=== PATIENT | female | born 1955 | race Two or more races ===

== ENCOUNTER → 2016-10-19 | Outpatient (CLI) | payer OTHER ==
--- NOTE | 2016-10-19 15:17 | RADRPT ---
PROCEDURE: Limited x-ray of both lower extremities. CLINICAL INDICATION: Bilateral leg pain. TECHNIQUE: Single frontal view of both lower extremities was obtained from the hips to the calves. COMPARISON: Right knee radiographs dated 08/26/2016. FINDINGS: The hips are grossly normal. There are degenerative changes of both knees with right worse than lef t. IMPRESSION: 1. Grossly normal hips. 2. Degenerative changes of both knees with right worse than left. RPTAT: QQ .Oscar Watters MD, MD Date Time Electronically viewed and signed by .Oscar Watters MD, MD on 10/19/2016 15:17 .R/
== END | disposition home or self-care (01) ==
LOC: HKI 09:31
PROVIDERS: ATTEND Orthopaedic Surgery
DX: Z01.818 Encounter for other preprocedural examination (principal); M17.11 Unilateral primary osteoarthritis, right knee; M25.561 Pain in right knee
CPT/HCPCS: 77073; Z7500; G0463

== ENCOUNTER 2016-10-25 10:43 | Inpatient (IN) | payer OTHER ==
[2016-10-24 11:59] VITALS: Ht 160 cm; Wt 75.0 kg
[2016-10-25] VITALS (58 sets, daily range): BP systolic 77–142; BP diastolic 40–81; PULSE 70–113; RESP 9–18
[~2016-10-25] VITALS: Ht 160 cm; Wt 75.0 kg
[~2016-10-25 10:43] MED LIST: PROPOFOL 1000 MG INJ ONE
[2016-10-25] MEDS: LACTATED RINGER'S 1,000 ML IV SCH ×3 (11:00→21:00)
[2016-10-25] MEDS ORDERED: TRANEXAMIC ACID 750 MG in SOD CHLORIDE 0.9% 92.5 ML IV ONE (11:00)
[2016-10-25] MEDS ORDERED: VANCOMYCIN 1 GM/NS 250 ML X1 BEFORE INCISION IVPB ONE (11:00)
[2016-10-25] MEDS ORDERED: traMADOL 50 MG TAB X 1 DOSE PO ONE (11:30)
[2016-10-25] MEDS ORDERED: PREGABALIN 300 MG PO X1 PO ONE (11:30)
[2016-10-25] MEDS ORDERED: CELECOXIB 400 MG PO X1 DOSE PO ONE (11:30)
[2016-10-25] MEDS ORDERED: oxyCODONE (CR) 10 MG TAB [oxyCONTIN] X1 DOSE PO ONE (11:30)
[2016-10-25] MEDS ORDERED: CLON0.5T4 PO (12:34)
[2016-10-25] MEDS ORDERED: MELO-109 PO (12:35)
[2016-10-25] MEDS ORDERED: FOLI-49 PO (12:35)
[2016-10-25] MEDS ORDERED: OMEP20CA16 PO (12:35)
[2016-10-25] MEDS ORDERED: SIMV20TA PO (12:36)
[2016-10-25] MEDS ORDERED: BACITRACIN 50000 UNITS INJ ONE (12:57)
[2016-10-25] MEDS ORDERED: BUPIVACAINE LIPOSOME/PF 266 MG/20 ML VIAL INFIL SCH (13:00)
[2016-10-25] MEDS ORDERED: TRANEXAMIC ACID 750 MG in SOD CHLORIDE 0.9% 100 ML IVPB SCH (13:00)
[2016-10-25] MEDS: PAIN COCKTAIL-CEFUROXIME IRR SCH ×14 (13:00→14:45)
[2016-10-25] MEDS ORDERED: EXPAREL NOTE (BUPIVICAINE LIPOSOMAL) XX SCH (13:00)
[2016-10-25] MEDS ORDERED: VANCOMYCIN 1 GM INJ ONE (13:02)
[2016-10-25] MEDS ORDERED: SODIUM CL BACTERIOSTATIC 30 ML INJ ONE (13:02)
[2016-10-25] MEDS ORDERED: POLYMYXIN B 500000 UNIT INJ ONE (13:02)
--- NOTE | 2016-10-25 13:10 | HPN ---
Date/Time of Note Date/Time of Note DATE: 10/25/16 TIME: 13:09 Interval H&P Admission Note Pt. seen H&P reviewed: No system changes No change from H&P on 10/14/[address] Julio Cloud. JAMIA BARBOSA MD Oct 25, 2016 13:10
[2016-10-25] MEDS ORDERED: METOCLOPRAMIDE 10 MG INJ ONE (13:19)
[2016-10-25] MEDS ORDERED: MIDAZOLAM 1 MG/ML 2 ML INJ ONE (13:19)
[2016-10-25] MEDS ORDERED: FENTAnyl 50 MCG/ML VIAL ONE (13:20)
[2016-10-25] MEDS ORDERED: DEXAMETHASONE 4 MG/ML 1 ML INJ ONE (13:34)
[2016-10-25] MEDS ORDERED: CEFAZOLIN 1 GM INJ ONE (13:34)
[2016-10-25] MEDS ORDERED: ONDANSETRON 4 MG INJ ONE (13:35)
[2016-10-25] MEDS ORDERED: ONDANSETRON 4 MG INJ IV PRN ×2 (14:30→16:30)
[2016-10-25] MEDS ORDERED: METOCLOPRAMIDE 10 MG INJ IV PRN (14:30)
[2016-10-25] MEDS ORDERED: DIPHENHYDRAMINE 50 MG INJ IV PRN (14:30)
[2016-10-25] MEDS ORDERED: HYDROmorphONE (0.2 MG/ML) 10ML SYG IV PRN ×3 (14:30)
[2016-10-25] MEDS ORDERED: MEPERIDINE 25 MG INJ IV PRN (14:30)
[2016-10-25] MEDS ORDERED: METOPROLOL 5 MG INJ ONE (14:45)
[2016-10-25] MEDS ORDERED: PROPOFOL 20 ML ONE (15:44)
[2016-10-25] MEDS ORDERED: hydrALAzine 20 MG INJ ONE (16:06)
[2016-10-25] MEDS ORDERED: MEPERIDINE 100 MG INJ ONE (16:07)
--- NOTE | 2016-10-25 16:22 | OPPN ---
Date/Time of Note Date/Time of Note DATE: 10/25/16 TIME: 16:21 Operative/Procedure Note Pre-Operative Diagnosis Right Knee OA Post-Operative Diagnosis Same Procedure Right TKA Surgeon: JAMIA BARBOSA MD Wedding Consultant: ROD MIRANDA PA-C Anesthesiologist: SOFIE PEREA MD Findings Severe OA Blood Usage/Administration None Implants/Grafts Depuy Attune TKA Estimated blood loss: 150 - 200 ml's Drains Hemovac x 2 Specimens Bone and soft tissue Complications: None Anesthesia type: spinal JAMIA BARBOSA MD Oct 25, 2016 16:22
[2016-10-25] MEDS ORDERED: MAGNESIUM HYDROXIDE 30ML CUP PO PRN (16:30)
[2016-10-25] MEDS ORDERED: BISACODYL 10 MG SUPP PR PRN (16:30)
[2016-10-25] MEDS ORDERED: NACL 0.9% 3 ML SYG IV SCH (16:30)
[2016-10-25] MEDS ORDERED: NA PHOSPHATE/BIPHOS 133 ML ENEMA PR PRN (16:30)
[2016-10-25] MEDS ORDERED: oxyCODONE 5 MG TAB PO PRN (16:30)
[2016-10-25] MEDS ORDERED: HYDROmorphONE 1 MG/ML SYG IV PRN (16:30)
[2016-10-25] MEDS ORDERED: ASPIRIN (EC) 325 MG TAB PO ONE (16:30)
[2016-10-25] MEDS ORDERED: DIPHENHYDRAMINE 25 MG CAP PO PRN (16:30)
--- NOTE | 2016-10-25 16:42 | PN ---
Date/Time of Note Date/Time of Note DATE: 10/25/16 TIME: 16:40 Assessment/Plan Lines/Catheters IV Catheter Type (from Nrsg): Peripheral IV Assessment/Plan Assessment/Plan Stable in PACU, s/p right TKA -cont abx x 48 hours -pain meds as needed -monitor prevena wound vac -ASA/SCDs for DVT prophylaxis -OOB with PT -check AM labs -monitor drain -d/c bonilla in AM XR of the right knee is pending at this time Subjective 24 Hr Interval Summary Doing well in PACU. Moving all extremities. Denies any pain. Exam/Review of Systems Vital Signs Vitals Vital Signs Date Time Temp Pulse Resp B/P Pulse Ox O2 Delivery O2 Flow Rate FiO2 10/25/16 12:22 98.3 70 18 142/74 98 Room Air Exam Free Text/Dictation Dressing dry Incision clean, dry, and intact without redness or drainage Thigh soft 5/5 Quadriceps, Tibialis Anterior, EHL, Gastroc, Soleus, Peroneals Normal sensation Palpable DT/PT, CR <2 sec No distal edema ROD MIRANDA PA-C Oct 25, 2016 16:41
[2016-10-25 16:43] LABS: HEMATOCRIT 32.2 % (37.0-47.0); HEMOGLOBIN 10.8 g/dl (12.0-16.0)
[2016-10-25 16:56] LABS: CREATININE 0.71 mg/dl (0.44-1.00); POTASSIUM 3.8 mmol/L (3.5-5.1)
[2016-10-25 16:57] LABS: CALCIUM 8.8 mg/dl (8.4-10.2)
--- NOTE | 2016-10-25 17:08 | CONS ---
Date/Time of Note Date/Time of Note DATE: 10/25/16 TIME: 16:56 Assessment/Plan Assessment/Plan Additional Assessment/Plan 61 yo s/p R TKA 2/2 Chronic severe OA managed for Dyslipidemia GERD Chronic anemia r/o iron deficiency PLAN: resume all previous home meds Labs to assess adequate home control of dyslipidemia Provide pain control/ antiemetics/ antipyretics/ supportive care PRN PROPHYLAXIS: DVT per ortho / PPI Thanks for the Consult. We will follow with you. Consultation Date/Type/Reason Admit Date/Time Oct 25, 2016 at 10:43 Date of Consultation: Oct 25, 2016 Type of Consultation: medicine Reason for Consultation med mgt Referring Provider: JAMIA BARBOSA MD Hx of Present Illness 61 yo F admitted for elective R TKA 2/2 chronic severe R kne OA. Currently post op uneventful surgery , lethargic with mild discomfort at op site. no other complaints 12 point review if systems was done and pertinent findings are as noted. Past Medical History * dyslipidemia * Chronic OA * chronic anemia Past Surgical History Past Surgical Hx: appendectomy, cholecystectomy Family History Significant Family History: no pertinent family hx Social History Alcohol Use: none Smoking Status: Never smoker Drug Use: none Exam/Review of Systems Vital Signs Vitals Vital Signs Date Time Temp Pulse Resp B/P Pulse Ox O2 Delivery O2 Flow Rate FiO2 10/25/16 12:22 98.3 70 18 142/74 98 Room Air Exam Constitutional: alert, oriented, No distress Head: atraumatic, normocephalic ENMT: No mucosa pink and moist (dry) Neck: non-tender, supple Respiratory: clear to auscultation, diminished breath sounds Cardiovascular: nl pulses, regular rate and rhythm Gastrointestinal: bowel sounds, non-tender, soft Extremities: No edema (LLE, RLE bandaged from upper thigh to ankle, patient moves toes well and good DP pulse in R foot) Neurological: lethargic, nl mental status, nl speech Results Result Diagram: 10/25/16 1630 Results 24 hrs Laboratory Tests Test 10/25/16 16:30 Hematocrit 32.2 L Hemoglobin 10.8 L Medications Medications Current Medications Lactated Ringer's (Lr) 1,000 ml @ 100 mls/hr Q10H IV ; Start 10/25/16 at 11:00 Bupivacaine Liposome (Exparel 266 Mg/ 20 ml Vial) 266 mg INTRA-OP INFIL Last administered on 10/25/16t 14:45; Admin Dose 266 MG; Start 10/25/16 at 13:00; Stop 10/29/16 at 12:59 Miscellaneous Information 1 ea NOTE XX ; Start 10/25/16 at 13:00; Stop 10/29/16 at 12:59 Clonazepam 0.5 mg 0.5 mg QHS PO ; Start 10/25/16 at 21:00 Lactated Ringer's (Lr) 1,000 ml @ 125 mls/hr Q8H IV ; Start 10/25/16 at 16:14 Celecoxib 200 mg 200 mg DAILY PO ; Start 10/26/16 at 09:00 Acetaminophen (Ofirmev 1000mg/ 100ml Iv) 100 ml @ 400 mls/hr Q6 IVPB ; Start at 18:00; Stop 10/26/16 at 17:59 Tramadol HCl (Ultram) 50 mg Q6 PO ; Start 10/25/16 at 12:00; Stop 10/28/16 at 11 :59 Oxycodone HCl (Roxicodone) 5 mg Q4H PRN PO PAIN LEVEL 1-3; Start 10/25/16 at 16 :30 Oxycodone HCl (Roxicodone) 10 mg Q4H PRN PO PAIN LEVEL 4-7; Start 10/25/16 at 16:30 Hydromorphone HCl 1 mg 1 mg Q3H PRN IV PAIN LEVEL 8-10; Start 10/25/16 at 16:30 Vancomycin HCl (Vancocin) 250 ml @ 125 mls/hr Q12 IVPB ; Start 10/25/16 at 21: 00; Stop 10/27/16 at 10:59 Ondansetron HCl (Zofran Inj) 4 mg Q6H PRN IV NAUSEA AND/OR VOMITING; Start at 16:30 Bisacodyl (Dulcolax Supp) 10 mg Q12H PRN [place] CONSTIPATION; Start 10/25/16 at 16: 30 Magnesium Hydroxide (Milk Of Mag) 30 ml BID PRN PO CONSTIPATION; Start at 16:30 Sodium Biphosphate/ Sodium Phosphate (Fleet Enema) 133 ml DAILY PRN SC CONSTIPATION; Start 10/25/16 at 16:30 Docusate Sodium (Colace) 100 mg BID PO ; Start 10/25/16 at 21:00 Diphenhydramine HCl (Benadryl) 25 mg Q6H PRN PO PRURITUS; Start 10/25/16 at 16: 30 Aspirin (Ecotrin) 325 mg BID PO ; Start 10/26/16 at 09:00 Pantoprazole (Protonix Tab) 40 mg BID@06,18 PO ; Start 10/25/16 at 18:00 Pregabalin (Lyrica) 50 mg BID PO ; Start 10/25/16 at 21:00 JOE HAMILTON Oct 25, 2016 17:07
--- NOTE | 2016-10-25 17:17 | RADRPT ---
PROCEDURE: XR Knee. CLINICAL INDICATION: Postop TECHNIQUE: AP and lateral views of the right knee are available for review. COMPARISON: None available FINDINGS: A cemented right total knee arthroplasty is present in near anatomic alignment without acute radiogr aphic abnormality. Recent surgical changes seen in the soft tissues. IMPRESSION: 1. Total right knee arthroplasty in near anatomic alignment without acute radiographic abnormality RPTAT: [facility] .Tyrone Price MD, MD Date Time Electronically viewed and signed by .Tyrone Price MD, MD on 10/25/2016 17:17 .d/
[2016-10-25] MEDS: traMADol 50 MG TAB PO SCH ×4 (18:00→23:48)
[2016-10-25] MEDS: ACETAMINOPHEN 1000MG/100ML IV 100 ML IVPB SCH ×2 (18:33→23:45)
[2016-10-25] MEDS: PANTOPRAZOLE (EC) 40 MG TAB PO SCH (18:36)
[2016-10-25] MEDS ORDERED: EPHEDrine SULFATE 50 MG/5 ML SYG ONE (19:27)
[2016-10-25] MEDS ORDERED: ALBUMIN HUMAN 5% 250 ML IV SCH (19:30)
[2016-10-25] MEDS ORDERED: LACTATED RINGER'S 500 ML IV SCH (19:30)
[2016-10-25] MEDS ORDERED: TRANEXAMIC ACID 750 MG in SOD CHLORIDE 0.9% 100 ML IVPB ONE ×2 (19:30→22:30)
[2016-10-25] MEDS ORDERED: EPHEDrine SULFATE 50 MG/5 ML SYG IV PRN ×2 (20:00)
[2016-10-25] MEDS ORDERED: ALBUMIN HUMAN 5% 250 ML IV ONE (20:00)
[2016-10-25] MEDS: PREGABALIN 25 MG CAP PO SCH (21:52)
[2016-10-25] MEDS: clonAZEPAM 0.5 MG TAB PO SCH (21:52)
[2016-10-25] MEDS: DOCUSATE SODIUM 100 MG CAP PO SCH (21:52)
[2016-10-25] MEDS: VANCOMYCIN 1 GM (PMX) 250 ML IVPB SCH (21:52)
--- NOTE | 2016-10-26 00:01 | OPR ---
DATE OF OPERATION: 10/25/2016 DATE: 10/25/2016 PREOPERATIVE DIAGNOSIS: Right knee osteoarthritis. POSTOPERATIVE DIAGNOSIS: Right knee osteoarthritis. OPERATION PERFORMED: Right total knee arthroplasty. SURGEON: Jamia Barragan MD SENIOR JAVA DATA ARCHITECT: YNES Acuña COMPONENTS USED: DePuy Attune size 5 narrow femoral component, size 4 tibial baseplate, 7 mm polyethylene insert and a 35 patellar button. ANESTHESIA: Spinal plus general endotracheal intubation plus periarticular injection. ANESTHESIOLOGIST: SOFIE PEREA MD. TOURNIQUET TIME: 63 minutes. ESTIMATED BLOOD LOSS: 150 mL. INTRAVENOUS FLUIDS: 1400 mL crystalloid. SPECIMENS: Bone and soft tissue. DRAINS: Hemovac x2. COMPLICATIONS: None. DISPOSITION: The patient tolerated the procedure well and was taken to the recovery room in stable condition. INDICATIONS: The patient is a 61-year-old woman who has had progressive worsening pain in the right knee with radiographic evidence of severe osteoarthritis. She has failed nonsurgical means of treatment to control her pain including activity modifications, pain medications, intra-articular injections and ambulatory assist devices. Despite these measures, she has had worsening pain. I felt she would benefit from a total knee arthroplasty. The risks, benefits, and alternatives of the procedure were explained in detail to the patient. I explained the risks of the surgery to include but not be limited to, bleeding and possible need for blood transfusion; infection; pain; stiffness; neurovascular injury with possible numbness, weakness, and/or paralysis anywhere from the knee down to the toes; fracture; instability; dislocation; wear and/or loosening of the prosthesis and possible need for future revision; blood clots; pulmonary embolism; and anesthetic complications such as heart attack, stroke, GI bleed, pneumonia, and/or . Ample time was allowed for the patient to ask questions, all of which were addressed and answered. The patient understood the risks involved and wished to proceed. Informed consent was signed prior to the procedure. PROCEDURE: The patient's right knee was initialed with a marking pen in the preoperative area to identify the correct operative site. The patient was brought to the operating room and transferred from the [facility] to the operating table where a spinal anesthetic was administered. The patient was then anesthetized and intubated. A Langford catheter was placed. A timeout was performed to confirm that the right leg was the correct operative site. The patient was given 2 g of Ancef within one hour prior to the procedure. A tourniquet was placed on the operative proximal thigh. The operative knee and lower extremity were prepped and draped in the usual sterile fashion. The operative lower extremity was elevated and exsanguinated with an Esmarch tourniquet. The proximal thigh tourniquet was inflated to 300 mmHg. The knee was flexed. A midline incision was made and carried down through the subcutaneous tissue and fat with sharp dissection. Limited medial and lateral flaps were raised. A median parapatellar arthrotomy was performed. Synovial fluid was normal in color and consistency. The patella was everted and the knee flexed. There were severe tricompartmental osteoarthritic changes noted. A medial release was performed at the joint line to the midcoronal plane. The ACL and PCL and remnants of the menisci were excised. The stepped drill was used to open up the femoral canal which was irrigated and sucked dry. The intramedullary guide lakesha was passed up the femur, and the distal cutting block was pinned into place for a 6 degree valgus cut, taking 10 mm of bone off distally. The oscillating saw was used to make the cut. The tibia was subluxed anteriorly. The tibial cutoff jig was placed over the center of the talus distally and over the junction of the medial and middle third of the tibial tubercle proximally. The guide was pinned into place and the oscillating saw was used to make the cut. The tibia was sized. The extension gap was checked and accommodated a 7 mm spacer block with the knee in full extension. There was no varus or valgus instability. At this point, the femur was sized with the posterior referencing guide. Two holes were drilled in 3 degrees of external rotation. The two holes were in line with the transepicondylar axis, perpendicular to Fate's line, and in line with the tibial cutoff jig brought up with the knee flexed 90 degrees and tensed with 2 lamina spreaders, suggesting the femoral rotation was correct. The four-in-one cutting block was pinned into place. The anterior and posterior cuts and chamfer cuts were made with the oscillating saw. The flexion gap was checked and accommodated the 7 mm spacer block at 90 degrees. There was no varus or valgus instability, suggesting the flexion and extension gaps were now equal. The central box was cut out on the femur. The tibia was drilled and punched in proper rotation. Trial components were placed into position with a trial insert. The patella was cut down to 21 mm down to 13 mm and sized. Three holes were drilled and the trial button placed in position. With all the trials now in place, the knee was taken through range of motion and came to full extension as evidenced by the fact that with the foot on my abdomen and axial loading, there was no tendency for the knee to flex. The knee was able to be flexed to 125 degrees with good patellar tracking with no lateral tilt or subluxation. At this point, I was satisfied with the overall range of motion, stability, and patellar tracking. The trials were removed. The real components were opened. Two bags of cement were mixed, one with and one without premixed antibiotic. The knee was irrigated with antibiotic saline and sucked dry. Once the cement was in a doughy stage, the real components were cemented into place. The knee was held in full extension, and the patellar component was held with a patellar clamp. All excess cement was removed with curettes. As the cement was hardening, the synovial/capsular layer was infiltrated with a mixture of 150 mg of 0.5% Bupivacaine, 8 mg of Duramorph, 300 mcg of epinephrine, 30 mg of Toradol, 100 mcg of clonidine, 750 mg of cefuroxime and 86 mL of normal saline, followed by an injection of 266 mg of liposomal Bupivacaine. A Hemovac drain was placed in the deep portion of the wound and brought out the anterolateral thigh. Once the cement was completely hardened, the trial liner was removed, and the real insert was opened. The tourniquet was let down, and there was good hemostasis. The knee was then irrigated with a mixture of betadine/saline and then antibiotic saline with pulsatile lavage. The real insert was impacted into the tibia and reduced onto to the femur. The arthrotomy was closed with a few interrupted #1 Ethibond in a figure-of- eight fashion, and then closed in a watertight fashion with a running #2 Stratafix suture. Knee flexion was checked against gravity and came to 125 degrees. The subcutaneous layer was irrigated and closed with 2-0 Statafix, and then 3-0 Vicryl and allie on the skin. The wound was covered with an occlusive dressing, and secured with cast padding and a bias dressing. The drain was secured with 3-0 nylon. The sponge and needle counts were correct at the end of the case. The patient was then awakened, extubated, and taken to the recovery room in stable condition. Dictated By: JAMIA CRUZ/ALEC Conf#: [id number] DID#: [id number] MTDAdrienne
[2016-10-26 00:14] VITALS: BP 96/54; RESP 18
[2016-10-26] MEDS: LACTATED RINGER'S 1,000 ML IV SCH ×5 (00:14→18:09)
[2016-10-26 01:00] VITALS: BP 98/55; PULSE 93; RESP 16
[2016-10-26 04:15] VITALS: BP 98/53; PULSE 87; RESP 16
[2016-10-26 05:35] LABS: HEMATOCRIT 25.6 % (37.0-47.0); HEMOGLOBIN 8.7 g/dl (12.0-16.0)
[2016-10-26 05:37] LABS: CHOL/HDL RATIO 1.7 RATIO; MAGNESIUM 1.5 mg/dl (1.7-2.5)
[2016-10-26] MEDS: PANTOPRAZOLE (EC) 40 MG TAB PO SCH ×2 (05:44→18:09)
[2016-10-26] MEDS: ACETAMINOPHEN 1000MG/100ML IV 100 ML IVPB SCH ×2 (05:44→11:48)
[2016-10-26 05:45] LABS: IRON 17 ug/dl (35-150)
[2016-10-26] MEDS: traMADol 50 MG TAB PO SCH ×4 (05:45→23:32)
[2016-10-26 05:50] LABS: CREATININE 0.76 mg/dl (0.44-1.00)
[2016-10-26 05:51] LABS: CALCIUM 8.4 mg/dl (8.4-10.2)
[2016-10-26 05:54] LABS: TOTAL IRON BINDING CAPACITY 167 ug/dl (241-421)
[2016-10-26 08:05] VITALS: BP 110/59; RESP 89
--- NOTE | 2016-10-26 08:46 | PN ---
Date/Time of Note Date/Time of Note DATE: 10/26/16 TIME: 08:45 Assessment/Plan Lines/Catheters IV Catheter Type (from Nrsg): Peripheral IV Langford in Place (from Nrsg): Yes Assessment/Plan Assessment/Plan Stable with low H&H POD #1, s/p right TKA -continue abx x 24 hours additional -ASA/SCDs -pain meds as needed -monitor drain -H&H low. Will monitor for now -OOB with PT -check AM labs -d/c planning. Will likely go home upon discharge Subjective 24 Hr Interval Summary Doing well. No acute overnight events. Denies pain. H&H low but patient asymptomatic. Denies f/c. Exam/Review of Systems Vital Signs Vitals Vital Signs Date Time Temp Pulse Resp B/P Pulse Ox O2 Delivery O2 Flow Rate FiO2 10/26/16 08:05 98.7 89 89 110/59 99 10/26/16 04:15 Nasal Cannula 2.0 Intake and Output 10/25/16 10/25/16 10/26/16 15:00 23:00 07:00 Intake Total 100 ml 3650 ml 650 ml Output Total 650 ml 540 ml Balance 100 ml 3000 ml 110 ml Exam Free Text/Dictation Hemovac: 40cc Dressing dry Incision clean, dry, and intact without redness or drainage Thigh soft 5/5 Quadriceps, Tibialis Anterior, EHL, Gastroc, Soleus, Peroneals Normal sensation Palpable DT/PT, CR <2 sec No distal edema Results Result Diagram: 10/26/165 10/26/16 0435 ROD MIRANDA PA-C Oct 26, 2016 08:46
[2016-10-26 09:19] LABS: ADD UMIC YES; URINE BILIRUBIN (Dip) NEGATIVE (NEGATIVE); URINE BLOOD (Dip) TRACE (NEGATIVE); URINE COLOR LT. YELLOW (YELLOW); URINE GLUCOSE (Dip) NEGATIVE (NEGATIVE); URINE KETONES (Dip) 40 (NEGATIVE); URINE LEUKOCYTE ESTERASE (Dip) NEGATIVE (NEGATIVE); URINE NITRITE (Dip) NEGATIVE (NEGATIVE); URINE TOTAL PROTEIN (Dip) NEGATIVE (NEGATIVE); URINE UROBILINOGEN (Dip) 0.2 E.U./dL (0.1-1.0)
[2016-10-26] MEDS: CELECOXIB 200 MG CAP PO SCH (09:29)
[2016-10-26] MEDS: ASPIRIN (EC) 325 MG TAB PO SCH ×2 (09:29→20:37)
[2016-10-26] MEDS: PREGABALIN 25 MG CAP PO SCH ×2 (09:29→20:37)
[2016-10-26] MEDS: DOCUSATE SODIUM 100 MG CAP PO SCH ×2 (09:29→20:37)
[2016-10-26] MEDS: VANCOMYCIN 1 GM (PMX) 250 ML IVPB SCH ×2 (09:29→20:37)
[2016-10-26 09:58] LABS: BACTERIA,URINE FEW; URINE RBCS 0-2 /HPF (0)
[2016-10-26] MEDS: oxyCODONE 5 MG TAB PO PRN (10:52)
--- NOTE | 2016-10-26 10:53 | PN ---
DATE: 10/26/2016 SUBJECTIVE DATA: Right knee pain well controlled. OBJECTIVE DATA: VITAL SIGNS: Temperature 98.7, pulse rate 89, respiratory rate 16, blood pressure 110/59, oxygen saturation 99% on low flow O2. GENERAL: This is a well-built, well-nourished female lying in bed in no apparent distress. HEENT: Head normocephalic and atraumatic. Eyes: Anicteric sclerae. Conjunctivae clear. ENT: Nasal septum is midline. Oral mucosa is moist. NECK: Supple. No JVD noticed. RESPIRATORY: Bilaterally clear to auscultation. No adventitious breath sounds heard. No use of accessory muscles of respiration. CARDIAC: Regular rate and rhythm. No murmurs. ABDOMEN: Soft, nontender and nondistended. Bowel sounds positive in all 4 quadrants. GENITOURINARY: The patient has a Langford catheter in place. EXTREMITIES: Right knee surgical dressing clean, dry and intact. Peripheral pulses palpable. No edema. NEUROLOGIC: The patient is awake, alert and oriented. Cranial nerves are grossly intact. LABORATORY AND DIAGNOSTIC DATA: Hemoglobin 8.7, hematocrit 25.6. Sodium 140, potassium 4.0, chloride 105, carbon dioxide 25, anion gap 15, BUN 15, creatinine 0.76, glucose 98, calcium 8.4. Magnesium 1.5. Iron 17, TIBC 167, iron saturation 30. Triglycerides 38, total cholesterol 122, LDL 43, HDL 71. ASSESSMENT AND PLAN: 1. Right knee osteoarthritis. Status post right total knee arthroplasty on . Postoperative management as per orthopedic surgery. Continue pain control. Continue physical therapy. 2. Anemia. The patient has underlying iron deficiency. We will start the patient on iron supplements. Transfusion will be deferred to orthopedic surgery. 3. Hypomagnesemia. We will replete. 4. Dyslipidemia. The patient's fasting lipid panel optimal. The patient on statins at home. 5. History of leukocytopenia. We will monitor. 6. Fluid, electrolytes and nutrition. Continue regular diet as tolerated. 7. Deep venous thrombosis prophylaxis, on aspirin as per orthopedic surgery. 8. Gastrointestinal prophylaxis, proton pump inhibitors. PLAN: Continue postoperative care. Add iron supplements. Replete magnesium. We will continue to follow the patient along with you. Thank you for the consult. Case discussed with Dr. Conner. ABUNDIO CONNER MD AM/ALEC Conf#: [id number] DID#: [id number] MTDD
[2016-10-26] MEDS ORDERED: MAGNESIUM SULFATE 2 GM/50 ML 50 ML IVPB ONE (11:30)
[2016-10-26 19:00] VITALS: BP 115/61; RESP 19
[2016-10-26] MEDS: FERROUS SULFATE (EC) 325 MG TAB PO SCH (20:37)
[2016-10-26] MEDS: clonAZEPAM 0.5 MG TAB PO SCH (22:06)
[2016-10-27] MEDS: LACTATED RINGER'S 1,000 ML IV SCH ×6 (00:14→23:00)
[2016-10-27] MEDS: PANTOPRAZOLE (EC) 40 MG TAB PO SCH ×2 (05:28→18:40)
[2016-10-27] MEDS: traMADol 50 MG TAB PO SCH ×4 (05:28→23:40)
[2016-10-27 05:35] LABS: BASOPHILS % 0.2 % (0.0-2.0); EOSINOPHILS # 0.1 10^3/ul (0.0-0.5); EOSINOPHILS % 1.6 % (0.0-7.0); HEMATOCRIT 28.4 % (37.0-47.0); HEMOGLOBIN 9.4 g/dl (12.0-16.0); LYMPHOCYTES # 0.5 10^3/ul (0.8-2.9); LYMPHOCYTES % 9.9 % (15.0-51.0); MEAN CORPUSCULAR HGB CONC 33.2 g/dl (32.0-37.0); MEAN CORPUSCULAR VOLUME 99.4 fl (82.0-101.0); MEAN PLATELET VOLUME 8.7 fl (7.4-10.4); MONOCYTE # 0.3 10^3/ul (0.3-0.9); MONOCYTES % 5.7 % (0.0-11.0); NEUTROPHIL # 3.8 10^3/ul (1.6-7.5); NEUTROPHILS % 82.6 % (39.0-77.0); PLATELET COUNT 128 10^3/UL (140-440); RED BLOOD COUNT 2.86 10^6/ul (4.20-5.40); RED CELL DISTRIBUTION WIDTH 13.3 % (11.5-14.5); UNCORRECTED WBC 4.6 10^3/ul (4.8-10.8); WHITE BLOOD COUNT 4.6 10^3/ul (4.8-10.8)
[2016-10-27 05:41] LABS: CONDITION 1
[2016-10-27 05:49] LABS: POTASSIUM 3.6 mmol/L (3.5-5.1)
[2016-10-27 05:52] LABS: CREATININE 0.79 mg/dl (0.44-1.00)
[2016-10-27 05:53] LABS: CALCIUM 8.3 mg/dl (8.4-10.2)
[2016-10-27] MEDS: oxyCODONE 5 MG TAB PO PRN (08:03)
[2016-10-27 08:29] VITALS: BP 134/69; RESP 18
--- NOTE | 2016-10-27 09:26 | PN ---
Date/Time of Note Date/Time of Note DATE: 10/26/16 TIME:07:23 A 61 year female s/p knee artyhroplasty with Spinal and TIVA. POD #1. pt is stable. pain is controlled, no N/V or headache or itching. Back is clean Assessment/Plan VTE Prophylaxis VTE Prophylaxis Intervention: SCD's Lines/Catheters IV Catheter Type (from Nrsg): Peripheral IV Urinary Cath still in place: No Exam/Review of Systems Vital Signs Vitals Vital Signs Date Time Temp Pulse Resp B/P Pulse Ox O2 Delivery O2 Flow Rate FiO2 10/27/16 08:29 98.0 79 18 134/69 92 10/26/16 04:15 Nasal Cannula 2.0 Intake and Output 10/26/16 10/26/16 10/27/16 14:59 22:59 06:59 Intake Total 100 ml 2760 ml 950 ml Output Total 510 ml 840 ml Balance 100 ml 2250 ml 110 ml Results Result Diagram: 10/27/16 0430 10/27/16 0430 Results 24 hrs Laboratory Tests Test 10/27/16 04:30 Anion Gap 13 Basophils # 0.0 Basophils % 0.2 Blood Urea Nitrogen 12 Calcium Level 8.3 L Carbon Dioxide Level 29 Chloride Level 101 Creatinine 0.79 Eosinophils # 0.1 Eosinophils % 1.6 Glucose Level 88 Hematocrit 28.4 L Hemoglobin 9.4 L Lymphocytes # 0.5 L Lymphocytes % 9.9 L Magnesium Level 1.9 Mean Corpuscular Hemoglobin 33.0 Mean Corpuscular Hemoglobin Concent 33.2 Mean Corpuscular Volume 99.4 Mean Platelet Volume 8.7 Monocytes # 0.3 Monocytes % 5.7 Neutrophils # 3.8 Neutrophils % 82.6 H Nucleated Red Blood Cells # 0.0 Nucleated Red Blood Cells % 0.0 Platelet Count 128 L Potassium Level 3.6 Red Blood Count 2.86 L Red Cell Distribution Width 13.3 Sodium Level 139 White Blood Count 4.6 L Medications Medications Current Medications Lactated Ringer's (Lr) 1,000 ml @ 100 mls/hr Q10H IV Last administered on 10/27 05:28; Admin Dose 100 MLS/HR; Start 10/25/16 at 11:00 Bupivacaine Liposome (Exparel 266 Mg/ 20 ml Vial) 266 mg INTRA-OP INFIL Last administered on 10/25/16 14:45; Admin Dose 266 MG; Start 10/25/16 at 13:00; Stop 10/29/16 at 12:59 Miscellaneous Information 1 ea NOTE XX ; Start 10/25/16 at 13:00; Stop 10/29/16 at 12:59 Clonazepam 0.5 mg 0.5 mg QHS PO Last administered on 10/26/16 22:06; Admin Dose 0.5 MG; Start 10/25/16 at 21:00 Lactated Ringer's (Lr) 1,000 ml @ 125 mls/hr Q8H IV Last administered on 16:02; Admin Dose 125 MLS/HR; Start 10/25/16 at 16:14 Celecoxib (Celebrex) 200 mg DAILY PO Last administered on 10/26/16 09:29; Admin Dose 200 MG; Start 10/26/16 at 09:00 Tramadol HCl (Ultram) 50 mg Q6 PO Last administered on 10/27/16 05:28; Admin Dose 50 MG; Start 10/25/16 at 12:00; Stop 10/28/16 at 11:59 Oxycodone HCl (Roxicodone) 5 mg Q4H PRN PO PAIN LEVEL 1-3; Start 10/25/16 at 16 :30 Oxycodone HCl (Roxicodone) 10 mg Q4H PRN PO PAIN LEVEL 4-7 Last administered on 10/27/16 08:03; Admin Dose 10 MG; Start 10/25/16 at 16:30 Hydromorphone HCl 1 mg 1 mg Q3H PRN IV PAIN LEVEL 8-10; Start 10/25/16 at 16:30 Vancomycin HCl (Vancocin) 250 ml @ 125 mls/hr Q12 IVPB Last administered on 20:37; Admin Dose 125 MLS/HR; Start 10/25/16 at 21:00; Stop 10/27/16 at 10:59 Ondansetron HCl (Zofran Inj) 4 mg Q6H PRN IV NAUSEA AND/OR VOMITING; Start at 16:30 Bisacodyl (Dulcolax Supp) 10 mg Q12H PRN [place] CONSTIPATION; Start 10/25/16 at 16: 30 Magnesium Hydroxide (Milk Of Mag) 30 ml BID PRN PO CONSTIPATION; Start at 16:30 Sodium Biphosphate/ Sodium Phosphate (Fleet Enema) 133 ml DAILY PRN [place] CONSTIPATION; Start 10/25/16 at 16:30 Docusate Sodium (Colace) 100 mg BID PO Last administered on 10/26/16 20:37; Admin Dose 100 MG; Start 10/25/16 at 21:00 Diphenhydramine HCl (Benadryl) 25 mg Q6H PRN PO PRURITUS; Start 10/25/16 at 16: 30 Aspirin (Ecotrin) 325 mg BID PO Last administered on 10/26/16 20:37; Admin Dose 325 MG; Start 10/26/16 at 09:00 Pantoprazole (Protonix Tab) 40 mg BID@06,18 PO Last administered on 10/27/16 05:28; Admin Dose 40 MG; Start 10/25/16 at 18:00 Pregabalin (Lyrica) 50 mg BID PO Last administered on 10/26/16 20:37; Admin Dose 50 MG; Start 10/25/16 at 21:00 Ferrous Sulfate (Ferrous Sulfate (Ec)) 325 mg BID PO Last administered on 20:37; Admin Dose 325 MG; Start 10/26/16 at 21:00 SOFIE PEREA MD Oct 27, 2016 09:26
--- NOTE | 2016-10-27 09:47 | PN ---
Date/Time of Note Date/Time of Note DATE: 10/27/16 TIME: 09:39 Assessment/Plan VTE Prophylaxis VTE Prophylaxis Intervention: other (Aspirin) Lines/Catheters IV [facility] (from [facility]): Peripheral IV Urinary Cath still in place: No Assessment/Plan Chief Complaint/Hosp Course 1. Right knee osteoarthritis. Status post right total knee arthroplasty on . Postoperative management as per orthopedic surgery. Continue pain control. Continue physical therapy. 2. Normocytic, normochromic anemia. The patient has underlying iron deficiency. Continue iron supplements. Transfusion will be deferred to orthopedic surgery. 3. Pancytopenia. As per the patient, she was evaluated by hematology including a bone marrow biopsy. The patient did not have any evidence of any malignancy. Continue to monitor. 4. Dyslipidemia. The patient's fasting lipid panel optimal. The patient on statins at home. 5. Fluid, electrolytes and nutrition. Continue regular diet as tolerated. 6. Deep venous thrombosis prophylaxis, on aspirin as per orthopedic surgery. 7. Gastrointestinal prophylaxis. Continue proton pump inhibitors. PLAN: Continue postoperative care. Continue iron supplements. Will continue to follow the patient along with you. Thank you for the consult. Case discussed with Dr. Conner. Problems: Subjective 24 Hr Interval Summary Free Text/Dictation Patient progressing well with PT. Pain well controlled. Exam/Review of Systems Vital Signs Vitals Vital Signs Date Time Temp Pulse Resp B/P Pulse Ox O2 Delivery O2 Flow Rate FiO2 10/27/16 08:29 98.0 79 18 134/69 92 10/26/16 04:15 Nasal Cannula 2.0 Intake and Output 10/26/16 10/26/16 10/27/16 15:00 23:00 07:00 Intake Total 100 ml 2760 ml 950 ml Output Total 510 ml 840 ml Balance 100 ml 2250 ml 110 ml Exam GENERAL: This is a well-built, well-nourished female lying in bed in no apparent distress. HEENT: Head normocephalic and atraumatic. Eyes: Anicteric sclerae. Conjunctivae clear. ENT: Nasal septum is midline. Oral mucosa is moist. NECK: Supple. No JVD noticed. RESPIRATORY: Bilaterally clear to auscultation. No adventitious breath sounds heard. No use of accessory muscles of respiration. CARDIAC: Regular rate and rhythm. No murmurs. ABDOMEN: Soft, nontender and nondistended. Bowel sounds positive in all 4 quadrants. GENITOURINARY: The patient has a Langford catheter in place. EXTREMITIES: Right knee surgical dressing clean, dry and intact. Peripheral pulses palpable. No edema. NEUROLOGIC: The patient is awake, alert and oriented. Cranial nerves are grossly intact. Results Result Diagram: 10/27/16 0430 10/27/16 0430 Results 24 hrs Laboratory Tests Test 10/27/16 04:30 Anion Gap 13 Basophils # 0.0 Basophils % 0.2 Blood Urea Nitrogen 12 Calcium Level 8.3 L Carbon Dioxide Level 29 Chloride Level 101 Creatinine 0.79 Eosinophils # 0.1 Eosinophils % 1.6 Glucose Level 88 Hematocrit 28.4 L Hemoglobin 9.4 L Lymphocytes # 0.5 L Lymphocytes % 9.9 L Magnesium Level 1.9 Mean Corpuscular Hemoglobin 33.0 Mean Corpuscular Hemoglobin Concent 33.2 Mean Corpuscular Volume 99.4 Mean Platelet Volume 8.7 Monocytes # 0.3 Monocytes % 5.7 Neutrophils # 3.8 Neutrophils % 82.6 H Nucleated Red Blood Cells # 0.0 Nucleated Red Blood Cells % 0.0 Platelet Count 128 L Potassium Level 3.6 Red Blood Count 2.86 L Red Cell Distribution Width 13.3 Sodium Level 139 White Blood Count 4.6 L Medications Medications Current Medications Lactated Ringer's (Lr) 1,000 ml @ 100 mls/hr Q10H IV Last administered on 10/27 05:28; Admin Dose 100 MLS/HR; Start 10/25/16 at 11:00 Bupivacaine Liposome (Exparel 266 Mg/ 20 ml Vial) 266 mg INTRA-OP INFIL Last administered on 10/25/16 14:45; Admin Dose 266 MG; Start 10/25/16 at 13:00; Stop 10/29/16 at 12:59 Miscellaneous Information 1 ea NOTE XX ; Start 10/25/16 at 13:00; Stop 10/29/16 at 12:59 Clonazepam 0.5 mg 0.5 mg QHS PO Last administered on 10/26/16 22:06; Admin Dose 0.5 MG; Start 10/25/16 at 21:00 Lactated Ringer's (Lr) 1,000 ml @ 125 mls/hr Q8H IV Last administered on 16:02; Admin Dose 125 MLS/HR; Start 10/25/16 at 16:14 Celecoxib (Celebrex) 200 mg DAILY PO Last administered on 10/26/16 09:29; Admin Dose 200 MG; Start 10/26/16 at 09:00 Tramadol HCl (Ultram) 50 mg Q6 PO Last administered on 10/27/16 05:28; Admin Dose 50 MG; Start 10/25/16 at 12:00; Stop 10/28/16 at 11:59 Oxycodone HCl (Roxicodone) 5 mg Q4H PRN PO PAIN LEVEL 1-3; Start 10/25/16 at 16 :30 Oxycodone HCl (Roxicodone) 10 mg Q4H PRN PO PAIN LEVEL 4-7 Last administered on 10/27/16 08:03; Admin Dose 10 MG; Start 10/25/16 at 16:30 Hydromorphone HCl 1 mg 1 mg Q3H PRN IV PAIN LEVEL 8-10; Start 10/25/16 at 16:30 Vancomycin HCl (Vancocin) 250 ml @ 125 mls/hr Q12 IVPB Last administered on 20:37; Admin Dose 125 MLS/HR; Start 10/25/16 at 21:00; Stop 10/27/16 at 10:59 Ondansetron HCl (Zofran Inj) 4 mg Q6H PRN IV NAUSEA AND/OR VOMITING; Start at 16:30 Bisacodyl (Dulcolax Supp) 10 mg Q12H PRN [place] CONSTIPATION; Start 10/25/16 at 16: 30 Magnesium Hydroxide (Milk Of Mag) 30 ml BID PRN PO CONSTIPATION; Start at 16:30 Sodium Biphosphate/ Sodium Phosphate (Fleet Enema) 133 ml DAILY PRN [place] CONSTIPATION; Start 10/25/16 at 16:30 Docusate Sodium (Colace) 100 mg BID PO Last administered on 10/26/16 20:37; Admin Dose 100 MG; Start 10/25/16 at 21:00 Diphenhydramine HCl (Benadryl) 25 mg Q6H PRN PO PRURITUS; Start 10/25/16 at 16: 30 Aspirin (Ecotrin) 325 mg BID PO Last administered on 10/26/16 20:37; Admin Dose 325 MG; Start 10/26/16 at 09:00 Pantoprazole (Protonix Tab) 40 mg BID@06,18 PO Last administered on 10/27/16 05:28; Admin Dose 40 MG; Start 10/25/16 at 18:00 Pregabalin (Lyrica) 50 mg BID PO Last administered on 10/26/16 20:37; Admin Dose 50 MG; Start 10/25/16 at 21:00 Ferrous Sulfate (Ferrous Sulfate (Ec)) 325 mg BID PO Last administered on 20:37; Admin Dose 325 MG; Start 10/26/16 at 21:00 ABUNDIO REED NP Oct 27, 2016 09:47
[2016-10-27] MEDS: CELECOXIB 200 MG CAP PO SCH (09:48)
[2016-10-27] MEDS: ASPIRIN (EC) 325 MG TAB PO SCH ×2 (09:48→20:57)
[2016-10-27] MEDS: DOCUSATE SODIUM 100 MG CAP PO SCH ×2 (09:48→20:57)
[2016-10-27] MEDS: PREGABALIN 25 MG CAP PO SCH ×2 (09:48→20:57)
[2016-10-27] MEDS: VANCOMYCIN 1 GM (PMX) 250 ML IVPB SCH (09:49)
[2016-10-27] MEDS: FERROUS SULFATE (EC) 325 MG TAB PO SCH ×2 (09:49→20:56)
--- NOTE | 2016-10-27 11:04 | PN ---
Date/Time of Note Date/Time of Note DATE: 10/27/16 TIME: 11:02 Assessment/Plan Lines/Catheters IV Catheter Type (from Nrsg): Peripheral IV Langford in Place (from Nrsg): No Assessment/Plan Assessment/Plan Stable POD #2, s/p right TKA -pain meds, switch from oxycodone to norco -ASA/SCDs -OOB with PT -drain removed -check AM labs -d/c planning. Will likely go home tomorrow Subjective 24 Hr Interval Summary Doing well. No acute overnight events. H&H stable now. Mild pain with bending the knee. Progressing with PT. Would like to go home tomorrow. Exam/Review of Systems Vital Signs Vitals Vital Signs Date Time Temp Pulse Resp B/P Pulse Ox O2 Delivery O2 Flow Rate FiO2 10/27/16 08:29 98.0 79 18 134/69 92 10/26/16 04:15 Nasal Cannula 2.0 Intake and Output 10/26/16 10/26/16 10/27/16 15:00 23:00 07:00 Intake Total 100 ml 2760 ml 950 ml Output Total 510 ml 840 ml Balance 100 ml 2250 ml 110 ml Exam Free Text/Dictation Hemovac: 300cc Dressing dry Incision clean, dry, and intact without redness or drainage Thigh soft 5/5 Quadriceps, Tibialis Anterior, EHL, Gastroc, Soleus, Peroneals Normal sensation Palpable DT/PT, CR <2 sec No distal edema Results Result Diagram: 10/27/1642910/27/16429 ROD MIRANDA PA-C Oct 27, 2016 11:04
[2016-10-27] MEDS: HYDROCODONE/APAP (7.5/325) TAB PO PRN ×2 (17:21→21:22)
[2016-10-27 19:00] VITALS: BP 107/60; RESP 18
[2016-10-27] MEDS: clonAZEPAM 0.5 MG TAB PO SCH (22:24)
[2016-10-28] MEDS: LACTATED RINGER'S 1,000 ML IV SCH ×3 (00:14→09:00)
[2016-10-28] MEDS: PANTOPRAZOLE (EC) 40 MG TAB PO SCH (05:04)
[2016-10-28] MEDS: traMADol 50 MG TAB PO SCH (05:04)
[2016-10-28 05:54] LABS: ADD SCAN DIFF NO
[2016-10-28 05:56] LABS: POTASSIUM 3.8 mmol/L (3.5-5.1)
[2016-10-28 05:59] LABS: CREATININE 0.74 mg/dl (0.44-1.00); HEMOGLOBIN 8.5 g/dl (12.0-16.0); MEAN CORPUSCULAR HEMOGLOBIN 32.6 pg (29.0-33.0); MEAN CORPUSCULAR HGB CONC 31.5 g/dl (32.0-37.0); MEAN CORPUSCULAR VOLUME 103.4 fl (82.0-101.0); MEAN PLATELET VOLUME 10.8 fl (7.4-10.4); PLATELET COUNT 126 10^3/UL (140-415); RED BLOOD COUNT 2.61 10^6/ul (4.20-5.40); RED CELL DISTRIBUTION WIDTH 12.7 % (11.5-14.5); WHITE BLOOD COUNT 2.9 10^3/ul (4.8-10.8)
[2016-10-28 06:00] LABS: CALCIUM 8.2 mg/dl (8.4-10.2)
--- NOTE | 2016-10-28 07:24 | PDOCDIS ---
Discharge Instructions DIAGNOSIS Discharge Diagnosis: s/p right TKA CONDITION Patient Condition: Good HOME CARE INSTRUCTIONS: Diet Instructions: RegularSpecial Diet: N/A ACTIVITY: Activity Restrictions: Slowly Increase Activity Rest between Activity Avoid heavy lifting Do not operate Machinery Do not operate Power Tool Avoid Heavy Housework Keep Limb Elevated Bathing Restrictions: Shower FOLLOW UP/APPOINTMENTS Appointments follow up in the office on 11/04/16 OTHER ORDERS: Other Orders: S/P TKA Physical Therapy: Three times per week at home x 2 weeks Daily in Rehab/SNF WB STATUS: WBAT 1. Strengthening exercises for both upper and un-operated lower extremities. 2. Gait training with front wheeled walker 3. Active range of motion exercises to operative knee. 4. When not working on knee range of motion exercises, distal towel roll under operative ankle/distal calf to promote full extension. 5. DO NOT PUT ANYTHING BEHIND OPERATIVE KNEE!!! 6. Quadriceps and hamstring strengthening. 7. May switch to cane in contra lateral hand 6 weeks after surgery. 8. Physical Therapy can open case if nursing is not available. 9. Use Ice Machine as instructed from date of surgery while at rest 3X/day. 10. Patient requires mobile SCDs to reduce risk of developing DVT following TKA. Patient will use the mobile SCDs for 30 days postoperatively. Bathing assistance by home health aide twice weekly if Medicare patient. Occupational Therapy: Evaluation for assistive devices and ADL training. Wound Care: Keep incision dry & covered with Tegaderm until first visit with Dr. Barragan Anticoagulation Orders: Enteric Coated Aspirin 325 mg po bid x 6 weeks from date of surgery Follow-up:Call for an appointment with Dr. Barragan in 1 week after discharged from hospital at DME Orders: FWW, 3-in-1 Commode, Polar ice machine, Mobile SCDs ROD MIRANDA PA-C Oct 28, 2016 07:23
[2016-10-28] MEDS ORDERED: ASPI325T32 PO (07:26)
[2016-10-28] MEDS ORDERED: TRAM50TA2 PO (07:26)
[2016-10-28] MEDS ORDERED: GABA100C PO (07:26)
[2016-10-28] MEDS ORDERED: HYDR-905 PO (07:26)
[2016-10-28 08:13] VITALS: BP 129/71; RESP 16
--- NOTE | 2016-10-28 08:51 | PN ---
Date/Time of Note Date/Time of Note DATE: 10/28/16 TIME: 08:50 Assessment/Plan Lines/Catheters IV Catheter Type (from Nrsg): Saline Lock Langford in Place (from Nrsg): No Assessment/Plan Assessment/Plan Stable POD #3, s/p right TKA -pain meds as needed -ASA/SCDs -dressing changed today -OOB with PT -d/c home today -follow up in the office on 11/04/16 Subjective 24 Hr Interval Summary Doing well. No acute overnight events. Pain much improved. VSS, afebrile. H&H also stable. Would like to go home today. Exam/Review of Systems Vital Signs Vitals Vital Signs Date Time Temp Pulse Resp B/P Pulse Ox O2 Delivery O2 Flow Rate FiO2 10/28/16 08:13 97.8 94 16 129/71 95 10/26/16 04:15 Nasal Cannula 2.0 Intake and Output 10/27/16 10/27/16 10/28/16 15:00 23:00 07:00 Intake Total 610 ml 1850 ml 550 ml Balance 610 ml 1850 ml 550 ml Exam Free Text/Dictation Dressing dry Incision clean, dry, and intact without redness or drainage Thigh soft 5/5 Quadriceps, Tibialis Anterior, EHL, Gastroc, Soleus, Peroneals Normal sensation Palpable DT/PT, CR <2 sec No distal edema Results Result Diagram: 10/28/16 0436 10/28/166 ROD MIRANDA PA-C Oct 28, 2016 08:51
[2016-10-28] MEDS: FERROUS SULFATE (EC) 325 MG TAB PO SCH (09:32)
[2016-10-28] MEDS: DOCUSATE SODIUM 100 MG CAP PO SCH (09:32)
[2016-10-28] MEDS: CELECOXIB 200 MG CAP PO SCH (09:32)
[2016-10-28] MEDS: ASPIRIN (EC) 325 MG TAB PO SCH (09:32)
[2016-10-28] MEDS: PREGABALIN 25 MG CAP PO SCH (09:39)
[2016-10-28] MEDS: HYDROCODONE/APAP (7.5/325) TAB PO PRN (09:39)
--- NOTE | 2016-10-28 10:43 | PN ---
Date/Time of Note Date/Time of Note DATE: 10/28/16 TIME: 10:42 Assessment/Plan VTE Prophylaxis VTE Prophylaxis Intervention: other Lines/Catheters IV Catheter Type (from [facility]): Saline Lock Urinary Cath still in place: No Assessment/Plan Chief Complaint/Hosp Course 1. Right knee osteoarthritis. Status post right total knee arthroplasty on . Postoperative management as per orthopedic surgery. Continue pain control. Continue physical therapy. 2. Normocytic, normochromic anemia. The patient has underlying iron deficiency. Continue iron supplements. Transfusion will be deferred to orthopedic surgery. 3. Pancytopenia. As per the patient, she was evaluated by hematology including a bone marrow biopsy. The patient did not have any evidence of any malignancy. Continue to monitor. 4. Dyslipidemia. The patient's fasting lipid panel optimal. The patient on statins at home. 5. Fluid, electrolytes and nutrition. Continue regular diet as tolerated. 6. Deep venous thrombosis prophylaxis, on aspirin as per orthopedic surgery. 7. Gastrointestinal prophylaxis. Continue proton pump inhibitors. PLAN: Continue postoperative care. Continue iron supplements. The patient is medically stable to be discharged home. Please include iron tablets with the prescription. Will continue to follow the patient along with you. Thank you for the consult. Case discussed with Dr. Conner. Problems: Subjective 24 Hr Interval Summary Free Text/Dictation Patient walking with the help of PT. Exam/Review of Systems Vital Signs Vitals Vital Signs Date Time Temp Pulse Resp B/P Pulse Ox O2 Delivery O2 Flow Rate FiO2 10/28/16 08:13 97.8 94 16 129/71 95 10/26/16 04:15 Nasal Cannula 2.0 Intake and Output 10/27/16 10/27/16 10/28/16 15:00 23:00 07:00 Intake Total 610 ml 1850 ml 550 ml Balance 610 ml 1850 ml 550 ml Exam GENERAL: This is a well-built, well-nourished female lying in bed in no apparent distress. HEENT: Head normocephalic and atraumatic. Eyes: Anicteric sclerae. Conjunctivae clear. ENT: Nasal septum is midline. Oral mucosa is moist. NECK: Supple. No JVD noticed. RESPIRATORY: Bilaterally clear to auscultation. No adventitious breath sounds heard. No use of accessory muscles of respiration. CARDIAC: Regular rate and rhythm. No murmurs. ABDOMEN: Soft, nontender and nondistended. Bowel sounds positive in all 4 quadrants. GENITOURINARY: The patient has a Langford catheter in place. EXTREMITIES: Right knee surgical dressing clean, dry and intact. Peripheral pulses palpable. No edema. NEUROLOGIC: The patient is awake, alert and oriented. Cranial nerves are grossly intact. Results Result Diagram: 10/28/16 0436 10/28/16 0436 Results 24 hrs Laboratory Tests Test 10/28/16 04:30 10/28/16 04:36 Magnesium Level 1.8 Anion Gap 9 Basophils # Basophils % Blood Urea Nitrogen 10 Calcium Level 8.2 L Carbon Dioxide Level 35 H Chloride Level 100 Creatinine 0.74 Eosinophils # Eosinophils % Glucose Level 96 Hematocrit 27.0 L Hemoglobin 8.5 L Lymphocytes # Lymphocytes % Mean Corpuscular Hemoglobin 32.6 Mean Corpuscular Hemoglobin Concent 31.5 L Mean Corpuscular Volume 103.4 H Mean Platelet Volume 10.8 #H Monocytes # Monocytes % Neutrophils # Neutrophils % Nucleated Red Blood Cells # Nucleated Red Blood Cells % Platelet Count 126 L Potassium Level 3.8 Red Blood Count 2.61 L Red Cell Distribution Width 12.7 Sodium Level 140 White Blood Count 2.9 #L Medications Medications Current Medications Miscellaneous Information 1 ea NOTE XX ; Start 10/25/16 at 13:00; Stop 10/29/16 at 12:59 Clonazepam 0.5 mg 0.5 mg QHS PO Last administered on 10/27/16 22:24; Admin Dose 0.5 MG; Start 10/25/16 at 21:00 Lactated Ringer's (Lr) 1,000 ml @ 125 mls/hr Q8H IV Last administered on 12:15; Admin Dose 125 MLS/HR; Start 10/25/16 at 16:14 Celecoxib (Celebrex) 200 mg DAILY PO Last administered on 10/28/16 09:32; Admin Dose 200 MG; Start 10/26/16 at 09:00 Tramadol HCl (Ultram) 50 mg Q6 PO Last administered on 10/28/16 05:04; Admin Dose 50 MG; Start 10/25/16 at 12:00; Stop 10/28/16 at 11:59 Hydromorphone HCl (Dilaudid) 1 mg Q3H PRN IV PAIN LEVEL 8-10; Start 10/25/16 at 16:30 Ondansetron HCl (Zofran Inj) 4 mg Q6H PRN IV NAUSEA AND/OR VOMITING; Start at 16:30 Bisacodyl (Dulcolax Supp) 10 mg Q12H PRN [place] CONSTIPATION; Start 10/25/16 at 16: 30 Magnesium Hydroxide (Milk Of Mag) 30 ml BID PRN PO CONSTIPATION; Start at 16:30 Sodium Biphosphate/ Sodium Phosphate (Fleet Enema) 133 ml DAILY PRN [place] CONSTIPATION; Start 10/25/16 at 16:30 Docusate Sodium (Colace) 100 mg BID PO Last administered on 10/28/16 09:32; Admin Dose 100 MG; Start 10/25/16 at 21:00 Diphenhydramine HCl (Benadryl) 25 mg Q6H PRN PO PRURITUS; Start 10/25/16 at 16: 30 Aspirin (Ecotrin) 325 mg BID PO Last administered on 10/28/16 09:32; Admin Dose 325 MG; Start 10/26/16 at 09:00 Pantoprazole (Protonix Tab) 40 mg BID@06,18 PO Last administered on 10/28/16 05:04; Admin Dose 40 MG; Start 10/25/16 at 18:00 Pregabalin (Lyrica) 50 mg BID PO Last administered on 10/28/16 09:39; Admin Dose 50 MG; Start 10/25/16 at 21:00 Ferrous Sulfate (Ferrous Sulfate (Ec)) 325 mg BID PO Last administered on 09:32; Admin Dose 325 MG; Start 10/26/16 at 21:00 Acetaminophen/ Hydrocodone Bitart ([place] (7.5-325)) 1 tab Q4H PRN PO pain Last administered on 10/28/16 09:39; Admin Dose 1 TAB; Start 10/27/16 at 11:30 ABUNDIO REED NP Oct 28, 2016 10:42
[2016-10-28 11:16] LABS: EOSINOPHILS # 0.1 10^3/ul (0.0-0.5); LYMPHOCYTES # 0.7 10^3/ul (0.8-2.9); MONOCYTE # 0.3 10^3/ul (0.3-0.9); NEUTROPHIL # 1.8 10^3/ul (1.6-7.5)
--- NOTE | 2016-10-28 13:53 | HP ---
DATE OF ADMISSION: 10/25/2016 CHIEF COMPLAINT: Admission for right knee osteoarthritis for right total knee arthroplasty. HISTORY OF PRESENT ILLNESS: The patient is a 61-year-old woman who has developed severe osteoarthri tis of the right knee and is being scheduled for a right total knee arthroplasty. The patient was c leared by her primary care physician (Dr. Julio Cloud). The primary care physician cleared the april ent and wrote a handwritten clearance letter which on the chest. However, the primary care physicia n refused to dictate the clearance, history and physical and I am being asked to dictate for this ph ysician. Please see my initial history and physical which I performed on the patient on 08/25/2016. PAST MEDICAL HISTORY: 1. Hypertension. 2. Elevated cholesterol. 3. History of gastroesophageal reflux disease, history of chronic anemia and leukopenia. PAST SURGICAL HISTORY: 1. Gastric bypass surgery. 2. Cholecystectomy. 3. Appendectomy. MEDICATIONS AT HOME: 1. Clonazepam. 2. Simvastatin. 3. Gabapentin. 4. Meloxicam. 5. Folic acid. ALLERGIES: CODEINE. SOCIAL HISTORY: The patient does not smoke or drink. She is . She denies any history of dr erlinda abuse. FAMILY HISTORY: Noncontributory. REVIEW OF SYSTEMS: GENERAL/CONSTITUTIONAL: Negative for recent fevers, chills, decreased appetite, fatigue, or unexplained weight loss. EYES/EARS/NOSE/MOUTH/THROAT: Negative for headaches, double vision, tearing, nose bleeding, colds, obstruction, discharge, dental difficulties, gingival bleeding, dentures, neck stiffness, pain, tend erness, or masses in thyroid or other areas. CARDIOVASCULAR: Negative for chest pain, palpitations, irregular heartbeat, syncope, dyspnea on exe rtion, orthopnea, nocturnal paroxysmal dyspnea. Elevated cholesterol. RESPIRATORY: Negative for shortness of breath, wheezing, stridor, hemoptysis, tuberculosis, fever, or night sweats. GASTROINTESTINAL: Negative for dysphagia, abdominal pain, heartburn, nausea, vomiting, hematemesis, jaundice, constipation, diarrhea, abnormal stools (lis-colored, tarry, bloody, greasy, foul-smelli ng), or bright red blood per rectum. GENITOURINARY: Negative for urgency, frequency, dysuria, nocturia, hematuria, stones, infections, n ephritis, hesitancy, change in size of stream, dribbling, acute retention, or incontinence. History of reflux. HEMATOLOGICAL: History of chronic anemia and leukopenia. MUSCULOSKELETAL: Negative for pain, swelling, redness or heat of muscles or joints, limitation of m otion, muscular weakness, atrophy, or cramps. NEUROLOGIC/PSYCHIATRIC: Negative for convulsions, paralyses, tremor, incoordination, paresthesias, difficulties with memory or speech, sensory or motor disturbances, muscular coordination (ataxia, tr emor), emotional problems, anxiety, depression, previous psychiatric care, unusual perceptions, or h allucinations. HEMATOLOGIC: Negative for anemia, bleeding tendency, previous transfusions and reactions, or Rh inc ompatibility. ENDOCRINE: Negative for polydipsia, polyuria, hormone therapy, or intolerance to heat or cold. VITAL SIGNS: Temperature height 5 feet 2 inches, weight 167 pounds, blood pressure 99.0. Blood pres sure 80/80. Pulse 73,respirations 2-. NERAL APPEARANCE: Well-developed, well-nourishde male in no acute distress. ORIENTATION: Alert and oriented to person, place, and time. HEENT: Normocephalic, atraumatic, sclerae anicteric, no nasal discharge, oropharynx clear, dentition is good. SKIN: Normal color, texture, and turgor. No rashes noted throughout the trunk, bilateral upper extre mities, and bilateral lower extremities. NECK: Supple, nontender, without lymphadenopathy. No thyromegaly, no masses. CARDIAC: Regular rate and rhythm. LUNGS: Clear to auscultation bilaterally, with symmetric chest rise. ABDOMEN: Soft, nontender, nondistended. PHYSICAL EXAMINATION: quadriceps, tibialis anterior [place]. GENERAL: Temperature: VITAL SIGNS: Height 5 feet 2 inches, weight 167 pounds, blood pressure 128/80, pulse 72, respirator y rate 20, blood to. MUSCULOSKELETAL: The patient walks with an antalgic component to the right. She is nontender throu ghout the cervical and lumbar spine. She has full unrestricted range of motion of both shoulders, e lbows and wrists. Both hips are supple with 110 degrees of flexion, 40 degrees of external rotation , 20 degrees of internal rotation, no pain. Both knees are in varus, more pronounced on the right knee has no effusion, warmth or redness. Range of motion is 0-115 degrees with crepitus throughout the range of motion. Both knees are stable to varus and valgus stress testing, anterior drawer and [place] testing. Patellar grind inhibition are positive bilaterally. Candido's is negative bilate rally quadriceps, tibialis anterior, and peroneals both lower extremities. There is no distal edema . LABORATORY DATA: Noncontributory to 07/21/2016 reveal a white blood cell count of 2.4 with a hemato crit 35.7, platelet count 211. The absolute neutrophil count is 1400. Urinalysis shows no white bl ood cells and some mucus. There is epithelial cells. INR 1.0, PTT 28, glucose 89, BUN 16, creatini ne 0.85. A chest x-ay on 10/14/2016 is unremarkable with no acute process. Lap band devices in bessy ce. An EKG to 06/20/2016 shows normal sinus rhythm. IMPRESSION: Severe right knee osteoarthritis,. DISCUSSION: The patient has severe osteoarthritis of the right knee. The patient has been cleared by her primary care physician ( Dr. Cloud) and we will plan to proceed with knee replacement surge ry today on 10/25/2016. Dictated By: JAMIA BARBOSA MD EZ/NTS Conf#: [id number] DID#: [id number]
--- NOTE | 2016-10-28 16:14 | DS ---
DATE OF ADMISSION: 10/25/2016 DATE OF DISCHARGE: 10/28/2016 CONDITION UPON DISCHARGE: Stable. ADMITTING DIAGNOSIS: Right knee osteoarthritis with severe valgus deformity. DISCHARGE DIAGNOSIS: Status post right total knee arthroplasty. PROCEDURE PERFORMED: Right total knee arthroplasty. HOSPITAL COURSE: This is a 61-year-old female who was seen in the clinic initially complaining of right knee pain. She had undergone conservative modalities and had a severe valgus deformity of her right knee and it was thought she would benefit from a right total knee arthroplasty. On 10/25/2016, the patient was admitted and taken to the operating room. She underwent a right total knee arthroplasty. There were no intraoperative complications. The patient tolerated the procedure well. She was taken to the recovery room in stable condition. Pain was well controlled with oral pain medication. She was started on aspirin and SCDs for DVT prophylaxis. She remained hemodynamically stable and neurovascularly intact throughout her hospital stay. On postoperative day 1, she began physical therapy and continued to make good progress. On postoperative day #3, she was deemed clinically stable for discharge. Prior to discharge, the incision was inspected and noted to be clean , dry and intact. Dressing changes were done prior to the patient going home. LABORATORY ANALYSIS: Hemoglobin was 8.5, hematocrit 27.0, chemistry panel was within normal limits. DISCHARGE MEDICATIONS 1. Aspirin 325 mg, 2. Neurontin 100 mg. 3. [place] 7.5/325 mg. 4. Tramadol 50 mg. 5. Additionally, the patient is to resume all of her normal home medications. DISCHARGE INSTRUCTIONS: The patient will be discharged home in stable condition. She is to resume a normal diet. Activities include weightbearing as tolerated on the right lower extremity. She is to be in physical therapy with home health. She will be discharged home on the medications noted above and advised to resume all of her normal home medications. The patient is to call the office or return to the emergency room for any concerns including increased redness, swelling, drainage, fever or any concerns regarding the operation or site of incision. FOLLOWUP: The patient is to follow up in the office with Dr. Barragan on to start 11/04/2016. Dictated By: ROD QUICK for JAMIA YANEZ/NTS Conf#: [id number] DID#: [id number] MTDD
== END 2016-10-28 15:00 | disposition home or self-care (01) | DRG 470 ==
LOC: REC 10:43 → MS1 20:15
PROVIDERS: ADMIT Orthopaedic Surgery; ATTEND Orthopaedic Surgery
PROC: 0SRC0J9 Replacement of Right Knee Joint with Synthetic Substitute, Cemented, Open Approach (ICD-10-PCS; principal; 2016-10-25 13:00)
DX: M17.11 Unilateral primary osteoarthritis, right knee (principal); D61.818 Other pancytopenia; I10 Essential (primary) hypertension; E78.5 Hyperlipidemia, unspecified; K21.9 Gastro-esophageal reflux disease without esophagitis; D50.9 Iron deficiency anemia, unspecified; E78.00 Pure hypercholesterolemia, unspecified
CPT/HCPCS: 73560; 80048; 80061; 81001; 81003; 83036; 83540; 83735; 85014; 85018; 85025; 86850; 86900; 86901; 86920; 87081; 87086; 88304; 88311; 97110; 97116; 97163; 97530; Z7610; C1776; C9290; J0131; J0171; J0360; J0690; J0697; J0735; J1100; J1885; J2175; J2250; J2274; J2405; J2765; J3010; J3370; J3475; J7120; P9045

== ENCOUNTER → 2016-11-04 | Outpatient (CLI) | payer OTHER ==
[~2016-11-04] MED LIST changes: +ASPI325T32 PO; +CLON0.5T4 PO; +FOLI-49 PO; +GABA100C PO; +HYDR-905 PO; +OMEP20CA16 PO; -PROPOFOL 1000 MG INJ ONE; +SIMV20TA PO; +TRAM50TA2 PO
--- NOTE | 2016-11-04 11:02 | RADRPT ---
PROCEDURE: XR right knee. CLINICAL INDICATION: Knee pain. TECHNIQUE: AP and lateral weightbearing views are available for review. COMPARISON: 10/25/2016 FINDINGS: There is a total knee replacement. There is no evidence of loosening of the prosthesis. The osseous structures are normal in mineralization, architecture and alignment No acute fracture or dislocation is seen.No osseous lesions are identified. The soft tissues are unremarkable . there are anterior skin allie. IMPRESSION: Unremarkable total knee replacement. RPTAT: HGDB .Luis Patel MD, MD Date Time Electronically viewed and signed by .Luis Patel MD, MD on 11/04/2016 11:02 .B/
--- NOTE | 2016-11-04 12:43 | HKNOTE ---
DATE OF SERVICE: 11/04/2016 INTERVAL HISTORY: The patient presents today for her first postoperative evaluation. She is 10 days status post right total knee arthroplasty. She is doing well overall. She is complaining of some moderate pain. She has not started physical therapy with home health yet. Her first appointment is scheduled for today. She has been taking aspirin twice daily for DVT prophylaxis. She presents today for evaluation. The patient denies any fevers , chills or significant swelling. PHYSICAL EXAMINATION: On examination today, she is alert and oriented x4, and in no acute distress. She is walking with a front-wheel walker. Examination of the incision demonstrates it to be clean, dry and intact. Xin are in place. There is no erythema or warmth noted. Varus and valgus forces are stable. Range of motion is 0-85 degrees. Compartments are soft. Homans sign is negative. She is neurovascularly intact distally. IMAGING: X-rays of the right knee were obtained today and reviewed by me. They reveal good anatomic alignment of the right knee. The femoral and tibial plates are well aligned. There is no fracture or dislocation identified. ASSESSMENT: Ten days status post right total knee arthroplasty. PLAN: I encouraged to her begin home health physical therapy as soon as possible. It will improve her range of motion is ulcer strength and help decrease her pain. Her xin were removed today and Steri-Strips were applied. She is to continue ambulating with a front-wheel walker and transition to a cane as tolerated. Additionally, she is to continue aspirin twice daily for 6 weeks for DVT prophylaxis. We will see her back in 4 weeks for repeat evaluation. Dictated By: ROD QUICK for JAMIA YANEZ/ALEC Conf#: [id number] DID#: [id number] PRINCESS
== END | disposition home or self-care (01) ==
LOC: HKI 09:46
PROVIDERS: ATTEND Orthopaedic Surgery
DX: Z47.1 Aftercare following joint replacement surgery (principal); Z96.651 Presence of right artificial knee joint

== ENCOUNTER → 2016-12-02 | Outpatient (CLI) | payer OTHER | END | disposition home or self-care (01) | LOC: HKI 09:44 | PROVIDERS: ATTEND Orthopaedic Surgery | DX: Z47.1 Aftercare following joint replacement surgery (principal); Z96.651 Presence of right artificial knee joint ==

== ENCOUNTER → 2017-01-27 | Outpatient (CLI) | payer OTHER ==
--- NOTE | 2017-01-27 10:35 | RADRPT ---
PROCEDURE: XR right knee. CLINICAL INDICATION: Knee pain. TECHNIQUE: AP weightbearing, lateral weightbearing and sunrise views are available for review. COMPARISON: 11/04/2016 FINDINGS: There is a constrained total knee replacement. There is no evidence of loosening of the prosthesis. There is no evidence of hardware failure. The osseous structures are normal in mineralization, archi tecture and alignment No acute fracture or dislocation is seen.No osseous lesions are identified. T he soft tissues are unremarkable . IMPRESSION: Unremarkable constrained total knee replacement. RPTAT: HGDB .Luis Patel MD, Date Time Electronically viewed and signed by .Luis Patel MD, on 01/27/2017 10:34 .B/
== END | disposition home or self-care (01) ==
LOC: HKI 09:13
PROVIDERS: ATTEND Orthopaedic Surgery
DX: Z47.1 Aftercare following joint replacement surgery (principal); M17.11 Unilateral primary osteoarthritis, right knee; Z96.651 Presence of right artificial knee joint
CPT/HCPCS: 73562; Z7500; G0463

== ENCOUNTER → 2017-04-21 | Outpatient (CLI) | payer OTHER ==
[~2017-04-21] MED LIST changes: +MELO-109 PO
--- NOTE | 2017-04-21 16:44 | RADRPT ---
PROCEDURE: XR Knee. CLINICAL INDICATION: Pain. TECHNIQUE: Right knee x-rays, 3 views. COMPARISON: 01/27/2017. FINDINGS: Bone density appears slightly decreased. Knee arthroplasty hardware is in place and intact. There is no evidence of hardware loosening. The knee joint is well maintained. Soft tissues are unremark able. IMPRESSION: Right knee arthroplasty without evidence of hardware complication. No evidence of acute osseous abnormality. RPTAT: HLST .Maria Esther Tolbert MD, MD Date Time Electronically viewed and signed by .Maria Esther Tolbert MD, on 04/21/2017 16:44 .T/
== END | disposition home or self-care (01) ==
LOC: HKI 09:42
PROVIDERS: ATTEND Orthopaedic Surgery
DX: Z09 Encounter for follow-up examination after completed treatment for conditions other than malignant neoplasm (principal); E78.5 Hyperlipidemia, unspecified; F41.9 Anxiety disorder, unspecified; G47.00 Insomnia, unspecified; D72.819 Decreased white blood cell count, unspecified; Z96.651 Presence of right artificial knee joint
CPT/HCPCS: 73562; Z7500; G0463